=== PATIENT | male | born 1970 | race Two or more races ===

== ENCOUNTER 2024-01-07 12:27 | Inpatient (IN) | payer OTHER ==
[~2024-01-07] VITALS: Ht 185.4 cm; Wt 95.8 kg
[2024-01-07] VITALS (39 sets, daily range): BP systolic 86–124; BP diastolic 44–79; PULSE 50–74; RESP 11–30; TEMP 97.6–98; O2SAT 92–100
[2024-01-07] MEDS: VERAPAMIL 2.5MG/ML INJ 2ML VIAL IV ONE (12:39)
[2024-01-07] MEDS: HEPARIN SODIUM (PORCINE) 5000 UNITS/ML 1ML VIAL ONE (12:39)
[2024-01-07] MEDS: fentaNYL CITRATE 100 MCG/2 ML VL ONE (12:39)
[2024-01-07] MEDS: ANGIOMAX 250 MG VIAL IV ONE (12:39)
[2024-01-07] MEDS: MIDAZOLAM HCL 2MG/2ML 2ml VIAL (1mg/ml) ONE (12:40)
[2024-01-07] MEDS: IODIXANOL 320MG/ML 100ML BTL IV ONE (12:40)
[2024-01-07] MEDS: LIDOCAINE 2%HCL (LOCAL ANESTH.) INJ 20ML MDV ONE (12:40)
[2024-01-07] MEDS: SODIUM CHL 0.9% 50 ML ONE (12:40)
[2024-01-07] MEDS: HEPARIN SODIUM (PORCINE) 5000 UNITS/ML 1ML VIAL IV ONE (12:50)
[2024-01-07] MEDS: MORPHINE SULFATE INJ 2 MG/ml SYRG IV ONE (12:51)
[2024-01-07] MEDS: ONDANSETRON HCL 4 MG/2 ML VIAL IV ONE (12:52)
[2024-01-07] MEDS: ONDANSETRON HCL 4 MG/2 ML VIAL ONE ×2 (12:52→13:04)
[2024-01-07] MEDS: MORPHINE SULFATE INJ 2 MG/ml SYRG ONE (12:52)
[2024-01-07] MEDS ORDERED: MORPHINE SULFATE INJ 2 MG/ml SYRG IV PRN (13:00)
[2024-01-07] MEDS ORDERED: ACETAMINOPHEN 325 MG TAB PO PRN (13:00)
[2024-01-07] MEDS: ATROPINE SULF 1 MG/10ml SYR ONE (13:14)
[2024-01-07] MEDS ORDERED: DEXTROSE (50%) 50ML SYRG IV PRN (13:15)
[2024-01-07 13:16] LABS: Basophils # (auto) 0.1 10 ^3/uL (0-0.2); Basophils % (auto) 0.8 % (0.0-2.0); Eosinophils # (auto) 0.2 10 ^3/uL (0-0.8); Hematocrit 43.6 % (41.0-53.0); Hemoglobin 14.9 g/dL (13.5-17.5); Lymphocytes # (auto) 2.2 10 ^3/uL (0.4-5.4); Lymphocytes % (auto) 24.8 % (10.0-50.0); Mean Corpuscular Hemoglobin 30.6 pg (28.0-32.0); Mean Corpuscular Hgb Conc. 34.1 g/dL (32.0-36.0); Mean Corpuscular Volume 89.7 fL (80.0-100.0); Monocytes # (auto) 0.4 10 ^3/uL (0-1.3); Monocytes % (auto) 4.1 % (0.0-12.0); Neutrophils # (auto) 6.1 10 ^3/uL (1.6-8.6); Neutrophils % (auto) 68.3 % (37.0-80.0); Red Blood Cells 4.86 10^6/uL (4.5-5.90); White Blood Cell 8.9 10^3/uL (4.4-10.8)
[2024-01-07 13:30] LABS: INR 1.19 (0.9-1.15); Partial Thromboplastin Time 69.5 SEC (24.5-34.5); Prothrombin Time 12.4 sec (9.3-11.8)
[2024-01-07] MEDS: CLOPIDOGREL BISULFATE 75 MG TAB ONE ×3 (13:30→13:33)
[2024-01-07] MEDS: ASPirin 81 mg TAB ONE (13:33)
[2024-01-07 13:50] LABS: Triglycerides 244 mg/dL (< 150)
[2024-01-07 13:51] LABS: LDL Cholesterol 126 mg/dL (< 100)
[2024-01-07 13:52] LABS: Cholesterol 185 mg/dL (< 200); HDL Cholesterol 31 mg/dL (40-59)
[2024-01-07 14:03] LABS: Alanine Aminotransferase 45 U/L (7-40); Albumin 4.3 g/dL (3.2-4.8); Alkaline Phosphatase 74 U/L (46-116); Anion Gap 9 (5-15); Aspartate Aminotransferase 37 U/L (13-40); Bilirubin, Total 0.5 mg/dL (0.2-1.0); Blood Urea Nitrogen 16 mg/dL (9-23); Calcium 9.1 mg/dL (8.5-10.1); Carbon Dioxide 21 mmol/L (20-30); Chloride 110 mmol/L (98-107); Cholesterol 183 mg/dL (< 200); Glucose 188 mg/dL (74-106); HDL Cholesterol 27 mg/dL (40-59); LDL Cholesterol 127 mg/dL (< 100); Potassium 3.6 mmol/L (3.5-5.1); Sodium 140 mmol/L (136-145); Total Protein 6.9 g/dL (5.7-8.2); Triglycerides 244 mg/dL (< 150)
[2024-01-07 14:18] LABS: Magnesium 2.1 mg/dL (1.6-2.6)
[2024-01-07] MEDS: SODIUM CHLORIDE 0.9% 1,000 ML IV SCH (16:35)
[2024-01-07] MEDS: InsuLIN REG 1unit/0.01ml Soln (100units/ml) SC SCH (17:00)
[2024-01-07] MEDS: ACCU-CHEK COMFORT CURVE STRIP VI SCH (18:01)
[2024-01-07] MEDS: METOPROLOL TARTRATE 25 MG TAB PO SCH (22:00)
[2024-01-07 22:54] LABS: Potassium 3.8 mmol/L (3.5-5.1)
[2024-01-07] MEDS: AMIODARONE HCL 200 MG TAB ONE (22:59)
[2024-01-07] MEDS: AMIODARONE HCL 200 MG TAB PO ONE (23:00)
[2024-01-07 23:01] LABS: Magnesium 2.1 mg/dL (1.6-2.6)
[2024-01-07] MEDS: ATORVASTATIN 20 MG TAB PO SCH (23:05)
[2024-01-08] VITALS (36 sets, daily range): BP systolic 94–134; BP diastolic 45–85; PULSE 48–72; RESP 13–23; TEMP 37.1; O2SAT 90–99
[2024-01-08 07:10] LABS: Basophils # (auto) 0 10 ^3/uL (0-0.2); Basophils % (auto) 0.6 % (0.0-2.0); Eosinophils # (auto) 0.2 10 ^3/uL (0-0.8); Eosinophils % (auto) 1.9 % (0.0-7.0); Hemoglobin 13.5 g/dL (13.5-17.5); Lymphocytes % (auto) 25.6 % (10.0-50.0); Mean Corpuscular Hemoglobin 29.9 pg (28.0-32.0); Mean Corpuscular Hgb Conc. 32.9 g/dL (32.0-36.0); Mean Corpuscular Volume 90.7 fL (80.0-100.0); Monocytes # (auto) 0.6 10 ^3/uL (0-1.3); Monocytes % (auto) 7.7 % (0.0-12.0); Neutrophils % (auto) 64.2 % (37.0-80.0); Nucleated Red Blood Cells % 0.1 %; Red Blood Cells 4.52 10^6/uL (4.5-5.90); Red Cell Distribution Width 12.9 % (11.8-14.3); White Blood Cell 7.8 10^3/uL (4.4-10.8)
[2024-01-08 07:24] LABS: Alanine Aminotransferase 50 U/L (7-40); Albumin 3.6 g/dL (3.2-4.8); Alkaline Phosphatase 59 U/L (46-116); Anion Gap 7 (5-15); Aspartate Aminotransferase 164 U/L (13-40); BUN/Creatinine Ratio 21.1 (10.0-20.0); Blood Urea Nitrogen 16 mg/dL (9-23); Carbon Dioxide 23 mmol/L (20-30); Chloride 109 mmol/L (98-107); Glucose 118 mg/dL (74-106); Potassium 3.8 mmol/L (3.5-5.1); Sodium 139 mmol/L (136-145)
[2024-01-08 07:25] LABS: Bilirubin, Total 0.7 mg/dL (0.2-1.0)
[2024-01-08] MEDS: ASPirin 81 mg TAB PO SCH (09:45)
[2024-01-08] MEDS: CLOPIDOGREL BISULFATE 75 MG TAB PO SCH (09:45)
[2024-01-08] MEDS: METOPROLOL TARTRATE 25 MG TAB PO SCH (09:45)
[2024-01-08] MEDS ORDERED: CLOP75TA28 PO (13:30)
[2024-01-08] MEDS ORDERED: ATO40T PO (13:30)
[2024-01-08] MEDS ORDERED: METO25TA5 PO (13:30)
[2024-01-08] MEDS ORDERED: ASPI-628 PO (13:30)
== END 2024-01-08 16:15 | disposition home or self-care (01) | DRG 174 ==
LOC: ER 12:27 → EDBD 12:27 → TELE 13:01 → DOU IN ICU 14:38
PROVIDERS: ADMIT Nurse Practitioner Family; ATTEND Nurse Practitioner Family
PROC: 027034Z Dilation of Coronary Artery, One Artery with Drug-eluting Intraluminal Device, Percutaneous Approach (ICD-10-PCS; principal; 2024-01-07)
PROC: 4A023N7 Measurement of Cardiac Sampling and Pressure, Left Heart, Percutaneous Approach (ICD-10-PCS; 2024-01-07)
PROC: B211YZZ Fluoroscopy of Multiple Coronary Arteries using Other Contrast (ICD-10-PCS; 2024-01-07)
DX: I21.09 ST elevation (STEMI) myocardial infarction involving other coronary artery of anterior wall (principal); I47.20 Ventricular tachycardia, unspecified; E11.9 Type 2 diabetes mellitus without complications; E66.9 Obesity, unspecified; E78.00 Pure hypercholesterolemia, unspecified; I10 Essential (primary) hypertension; I25.10 Atherosclerotic heart disease of native coronary artery without angina pectoris; F17.200 Nicotine dependence, unspecified, uncomplicated; Z79.82 Long term (current) use of aspirin; Z87.442 Personal history of urinary calculi; Z68.27 Body mass index [BMI] 27.0-27.9, adult
CPT/HCPCS: 36415; 71045; 80053; 80061; 82310; 82962; 83036; 83735; 83880; 84100; 84132; 84443; 84484; 85025; 85610; 85730; 87081; 92941; 93306; 93458; 96374; 96375; 99152; 99153; G0378; J1815; J2250; J2405; Q9967